=== PATIENT | female | born 1975 | race Caucasian/White ===

== ENCOUNTER 2019-03-27 21:00 | Observation (INO) ==
[2019-03-27] MEDS ORDERED: ASPIRIN PO ONE (21:07)
--- NOTE | 2019-03-27 21:59 | EKG Report ---
Test Performed on : 03/27/2019 9:15:37 PM Test Reason : cp Blood Pressure : / mmHG Vent. Rate : 085 BPM Atrial Rate : 085 BPM P-R Int : 140 ms QRS Dur : 082 ms QT Int : 352 ms P-R-T Axes : 043 014 098 degrees QTc Int : 418 ms Normal sinus rhythm. Possible Left atrial enlargement T wave abnormality, consider anterolateral ischemia Abnormal ECG When compared with ECG of 11-NOV-2018 12:44, T wave inversion now evident in Anterolateral leads Unconfirmed Result
[2019-03-27 22:06] LABS: BASO# 0.08 X1000 (0.0-0.2); BASO% 1.1 % (0.0-0.8); EOS# 0.46 X1000 (0.0-0.7); EOS% 6.5 % (0.0-10.0); HEMATOCRIT 41.5 % (37.0-47.0); LYMPH# 3.27 X1000 (1.2-3.4); LYMPH% 46.1 % (20.5-51.1); MCHC 33.7 g/dL (33-37); MCV 86.1 FL (81-99); MONO# 0.71 X1000 (0.11-0.59); MPV 9.9 FL (7.4-10.4); NEUT# 2.57 X1000 (1.4-6.5); NEUT% 36.3 % (42.2-75.2); PLT 226 X1000 (130-400); RBC 4.82 XMIL (4.2-5.4); WBC 7.09 X1000 (4.8-10.8)
--- NOTE | 2019-03-27 22:23 | PROVIDER DOCUMENTATION ---
This chart was entered by Alecia Dejesus Scribe, acting as scribe for Kamilla Vallejo MD. HPI-Chest Pain - General Chief Complaint: Chest Pain Stated Complaint: CHEST PAIN/OPEN HEART MEHDI 01/23 Time Seen by Provider: 03/27/19 21:28 Source: patient Allergies/Adverse Reactions: Patient Allergies Allergy/AdvReac Type Severity Reaction Status Date / Time No Known Allergies Allergy Verified 11/11/18 12:54 Home Medications: Home Medication List Medication Instructions Recorded Confirmed Last Taken Type Insulin Aspart [Novolog] 100 unit SQ DIRECTED 12/07/13 11/08/15 11/08/15 16:25 History Levothyroxine [Synthroid] 150 microgm PO DAILY 12/07/13 11/08/15 11/08/15 05:30 History Escitalopram Oxalate [Lexapro] 10 mg PO DAILY 11/08/15 11/08/15 11/08/15 05:30 History - History of Present Illness-CP Nature of Presenting Problem: 43 yof c/o chest "cramping" since 1800 that is int and lasts few seconds. pt sts when pain occurs, hurts to take deep breath. pt sts went for walk and was able to only walk 1/4 a mile. pt was found by to be diaphoretic, heart racing and dizzy. checked heart rate after walk and it was 116 and checked again and went down to 80s. o2 was 98-99%. pt has hx of lad replacement on 01-23-19. pt has been able to exercise. walk 2-4 miles few times a week with no problems. 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 denies nvd, fever and swelling. Location: reports: other (left sided) Chest Pain Radiation: reports: no radiation Quality of Pain: reports: cramping Onset/Duration: 4-6 hours ago Timing: intermittent Context/Activities at Onset: reports: light activity Review of Systems - Adult - REVIEW OF SYSTEMS - ADULT Constitutional: reports: no symptoms reported. denies: chills, fever, fatique, night sweats Eyes: reports: no symptoms reported Ears, Nose, Mouth & Throat: reports: no symptoms reported Cardiovascular: reports: see HPI, chest pain, irregular heart rate (tachy). denies: heart murmur, palpitations, poor circulation, PND, syncope Respiratory: reports: see HPI, dyspnea on exertion. denies: cough, hemoptysis, shortness of breath Gastrointestinal: reports: see HPI, nausea (after walking that has resolved). denies: abdominal pain, diarrhea, vomiting Genitourinary: reports: no symptoms reported Musculoskeletal: reports: no symptoms reported Integumentary: reports: no symptoms reported Neurological: reports: see HPI, dizziness/vertigo (has resolved). denies: loss of balance, numbness, syncope Psychiatric: reports: no symptoms reported Endocrine: reports: see HPI, excessive sweating (after walk, has resolved). denies: goiter, increased thirst, polyuria Hematologic/Lymphatic: reports: no symptoms reported Allergic/Immunologic: reports: no symptoms reported All Other Systems: Reviewed and Negative Past History - Adult - PAST MEDICAL HISTORY-ADULT Review of Records: reports: Old Records Reviewed, Nursing Assessment Review, Medications Reviewed, Social history reviewed & non-contributory. Major Childhood Illnesses: reports: denies history Cardiovascular: reports: MA Respiratory: reports: denies history Gastrointestinal: reports: denies history Obstetrical/Gynecological: reports: denies history Genitourinary: reports: denies history Musculoskeletal: reports: denies history Neurological: reports: denies history Endocrine/Immune: reports: Diabetes Other Conditions: reports: denies history - PRIOR SURGERIES/PROCEDURES Surgical/Procedure History: reports: other (open heart sx to replace lad) - IMMUNIZATION STATUS Childhood Immunizations: See Nurse Assessment Flu Vaccine: See Nurse Assessment - FAMILY HISTORY Family History: reviewed, not pertinent - SOCIAL HISTORY Smoking: non-smoker Substance Use: none/never Physical Exam-General - PHYSICAL EXAM-ADULT Initial Vital Signs Reviewed: Yes - CONSTITUTIONAL General Appearance: appears well, alert, no apparent distress - EYES Eyes: PERRL/EOMI, pink conjunctivae - HEAD, EARS, NOSE, MOUTH & THROAT HENMT: normocephalic/atraumatic, moist mucous membranes, normal ENT inspection - NECK Neck: non-tender, full range of motion, supple, normal inspection - RESPIRATORY Respiratory: chest non-tender, lungs clear, normal breath sounds - CARDIOVASCULAR Cardiovascular: normal peripheral pulses, regular rate, rhythm - GASTROINTESTINAL (ABDOMEN) Abdominal Exam: normal bowel sounds, non tender, soft - LYMPHATIC Lymphatic: no adenopathy - MUSCULOSKELETAL Back Exam: normal inspection, no CVA tenderness, no vertebral tenderness Extremity: normal range of motion, non-tender, normal inspection Peripheral Pulses: radial (R): 2+, radial (L): 2+ - SKIN Integumentary: normal color, normal turgor, warm/dry - NEUROLOGIC Neurologic: grossly normal, no motor/sensory deficits - PSYCHIATRIC Psych/Mental Status: normal mood/affect, normal thought content, normal thought process, oriented x 3 Progress - PLAN OF CARE/RESULTS Progress/Plan/Lab Results: Vital Signs - 8 hr 03/27/19 21:32 Temperature 97.6 F Pulse Rate 86 Respiratory Rate 18 O2 Sat by Pulse Oximetry 100 Laboratory Results - last 24 hr 03/27/19 03/27/19 03/27/19 21:49 21:49 21:49 WBC 7.09 RBC 4.82 Hgb 14.0 Hct 41.5 MCV 86.1 MCH 29.0 MCHC 33.7 RDW Std Deviation 13.0 Plt Count 226 MPV 9.9 Immature Gran % (Auto) 0.0 Neut % (Auto) 36.3 L Lymph % (Auto) 46.1 [place] % (Auto) 10.0 H Eos % (Auto) 6.5 Baso % (Auto) 1.1 H Immature Gran # (Auto) 0.00 Neut # (Auto) 2.57 Lymph # (Auto) 3.27 [place] # (Auto) 0.71 H Eos # (Auto) 0.46 Baso # (Auto) 0.08 D-Dimer, Quantitative Sodium Potassium Chloride Carbon Dioxide Anion Gap BUN Creatinine Estimated GFR/1.73 m2 BUN/Creatinine Ratio Glucose Calculated Osmolality Calcium Total Bilirubin AST ALT Alkaline Phosphatase Creatine Kinase 87 Troponin T 0.033 Total Protein Albumin Globulin Albumin/Globulin Ratio 03/27/19 03/27/19 21:49 21:49 WBC RBC Hgb Hct MCV MCH MCHC RDW Std Deviation Plt Count MPV Immature Gran % (Auto) Neut % (Auto) Lymph % (Auto) [place] % (Auto) Eos % (Auto) Baso % (Auto) Immature Gran # (Auto) Neut # (Auto) Lymph # (Auto) [place] # (Auto) Eos # (Auto) Baso # (Auto) D-Dimer, Quantitative 0.56 H Sodium 142 Potassium 4.4 Chloride 107 Carbon Dioxide 20 L Anion Gap 15 BUN 16 Creatinine 0.6 Estimated GFR/1.73 m2 > 60 BUN/Creatinine Ratio 27 Glucose 194 H Calculated Osmolality 290 Calcium 9.5 Total Bilirubin 0.36 AST 34 H ALT 26 Alkaline Phosphatase 89 Creatine Kinase Troponin T Total Protein 6.7 Albumin 4.3 Globulin 2.4 Albumin/Globulin Ratio 1.8 Orders Category Date Time Status CHEST-1 VIEW [RAD] Stat Exams 03/27/19 21:56 Taken CBC WITH ELECTRONIC DIFF [HEME] Stat Lab 03/27/19 21:49 Completed CK PROFILE [SP CHEM] Stat Lab 03/27/19 21:49 Completed COMPREHENSIVE METABOLIC PANEL [CHEM] Stat Lab 03/27/19 21:49 Completed D-DIMER [COAG] Stat Lab 03/27/19 21:49 Completed TROPONIN T Stat Lab 03/27/19 21:49 Completed Aspirin Med 03/27/19 21:07 Discontinued 325 mg PO NOW ONE EKG [EKG] Stat Ther 03/27/19 21:07 Draft Result Diagrams: 03/27/19 21:49 03/27/19 21:49 - EKG 1 Time of EKG reading by physician:: 21:20 EKG Read and Signed by:: Kamilla Vallejo EKG Interpretation (*Must complete 3 of following elements*): Abnormal Rate: 85 (possible left atrial enlargement ) Rhythm: NSR [place]: normal QRS: normal SC Interval: normal ST Wave: non-specific ST changes (t wave abnormality, consider anterolateral ischemia) - CONSULTS/PCP/HOSPITALIST Notification #1 *Consult/PCP/Hospitalist*: D/W DR LEE, HOSPITALIST Time Discussed: 23:35 Consult Disposition: Admit Departure - Departure Date of Disposition Decision: 03/27/19 Time of Disposition Decision: 23:38 DIAGNOSIS: Chest pain Disposition: ADMITTED INPATIENT 09 Certified Medical Emergency: Emergent Condition: Stable Referrals and Follow-Ups: Higinio Velásquez CRNP [Primary Care Provider] - - Critical Care Note This patient required my direct & personal management of CC.: No Attestation - Physician/ CRICKET Attestation Patient care was provided by Advanced Practice Provider:: No The physician spent face to face time with patient:: Yes Advanced Practice Provider documentation review:: Supervising physician onsite and consulted in the evaluation and care of this patient. The physician did have a face to face encounter with the patient. This chart was documented by the indicated scribe, (Alecia Dejesus, Scribe) and accurately reflects the services I performed and decisions made by me, Kamilla Vallejo MD, as attested by the provider's signature.
[2019-03-27 23:04] LABS: AGAP 15; ALB/GLOB RATIO 1.8; ALBUMIN 4.3 g/dL (3.5-5.0); ALKALINE PHOSPHATASE 89 U/L (32-104); BUN 16 mg/dL (8-22); CALCIUM 9.5 mg/dL (8.8-10.2); CHLORIDE 107 mmol/L (98-107); COSMO 290; CREATININE 0.6 mg/dL (0.5-0.9); ESTIMATED GFR > 60; GLUCOSE 194 mg/dL (70-104); GOT 34 U/L (10-30); GPT 26 U/L (10-36); POTASSIUM 4.4 mmol/L (3.5-5.1); SODIUM 142 mmol/L (136-145); TCO2 20 mmol/L (25-35); TOTAL BILIRUBIN 0.36 mg/dL (0.20-1.00); TOTAL PROTEIN 6.7 g/dL (6.3-8.3)
[2019-03-28] MEDS ORDERED: NITROGLYCERIN SL PRN (02:25)
[2019-03-28] MEDS ORDERED: TYLENOL PO PRN (02:25)
[2019-03-28] MEDS ORDERED: ZOFRAN IV PRN (02:25)
--- NOTE | 2019-03-28 06:16 | HISTORY AND PHYSICAL ---
PRIMARY CARE PHYSICIAN: Dr. Higinio Velásquez CHIEF COMPLAINT: Chest pain. HISTORY OF PRESENTING ILLNESS: A 42-year-old female with a history of coronary artery disease status post coronary bypass in January of 2019, diabetes mellitus type 1, and hypothyroidism who had presented to emergency department with a 1-day history of having chest pain. She described it as cramping like sensation and worse with exertion. She was also having shortness of breath intermittently. The patient was evaluated in the emergency department. Due to her presenting symptoms, it was thought that we will place her for observation for further evaluation and management. At the time of my examination, patient denied any headache, nausea, vomiting, diarrhea, fever, chills, hemoptysis, melena, or weight changes, but complained of chest pain and shortness of breath. PAST MEDICAL HISTORY: Includes diabetes mellitus type 1 on insulin pump and hypothyroidism. PAST SURGICAL HISTORY: Coronary bypass, cataract surgery, and skin graft in lower legs. ALLERGIES: No known drug allergies. CURRENT MEDICATIONS: 1. Lexapro 10 mg p.o. daily. 2. NovoLog as directed. 3. Levothyroxine 150 mcg p.o. daily. SOCIAL HISTORY: No history of smoking, alcohol or illicit drug use. FAMILY HISTORY: No history of coronary artery disease. REVIEW OF SYSTEMS: Fourteen point review of system is as in HPI. Other systems negative. PHYSICAL EXAMINATION: GENERAL: Cooperative, friendly female. She is resting comfortably now. VITAL SIGNS: Temperature 97.6 degrees, pulse 86, respirations 18, and blood pressure 120/80. HEENT: Atraumatic, normocephalic. Extraocular movements intact. PERRLA. NECK: No masses. CHEST: Clear to auscultation. CARDIOVASCULAR: Regular rate and rhythm. ABDOMEN: Soft. Positive bowel sounds. EXTREMITIES: No edema. NEUROLOGIC: She is awake, alert, and oriented x3. : No bladder distention. SKIN: Warm. LABORATORIES AND STUDIES: WBCs 7.19, hemoglobin 14.1, hematocrit 41.5, and platelets 226,000. Sodium 142, potassium 4.4, chloride 107, CO2 is 20, BUN is 16, creatinine 0.6 and glucose is 194. ASSESSMENT: A 43-year-old female with a history of diabetes mellitus type 1, hypothyroidism, coronary artery disease, status post recent coronary bypass in January of 2019 who had presented to the emergency department with a 1-day history of having chest pain. The patient was evaluated in the emergency department. She will be admitted for observation for further evaluation and management. 1. Chest pain. 2. Coronary artery disease, status post recent coronary bypass in January of 2019. 3. Diabetes mellitus type 1 on insulin pump. 4. Hypothyroidism. PLAN: 1. We will admit patient to medical floor with telemetry. 2. Continue with cardiac workup. Check EKG and cardiac enzymes. We will have the patient continue on aspirin. We will use sublingual nitroglycerin p.r.n. chest pain. 3. We will consult Cardiology. 4. Continue patient on insulin pump. 5. We will monitor blood glucose closely. 6. Restart other home medications. 7. Put patient on DVT prophylaxis and SCD's. 8. Continue to follow and reassess. Make further recommendations based on patient's clinical course. cc: Rodríguez Bustillo MD MTDD
--- NOTE | 2019-03-28 07:08 | Diag Imaging Result Doc PS360 ---
EXAM: CHEST-1 VIEW 03/27/2019 HISTORY: CP TECHNIQUE: AP portable at 2217 COMMENT: The lungs are clear. There are sternotomy wires. The heart and pulmonary vascularity are within normal limits. Compared to 12/09/2013 the postsurgical changes were not present previously but otherwise there has been no significant change. IMPRESSION: No evidence of acute disease. Electronically signed by Jose Owens 03/28/2019 7:06 AM
[2019-03-28] MEDS: PRILOSEC PO SCH (08:41)
[2019-03-28] MEDS ORDERED: NS 1,000 ML IV SCH (08:45)
[2019-03-28] MEDS ORDERED: ASPIRIN PO SCH (09:00)
--- NOTE | 2019-03-28 10:57 | EKG Report ---
Test Performed on : 03/28/2019 10:49:02 AM Test Reason : chest pain Blood Pressure : / mmHG Vent. Rate : 097 BPM Atrial Rate : 097 BPM P-R Int : 150 ms QRS Dur : 076 ms QT Int : 376 ms P-R-T Axes : 042 008 193 degrees QTc Int : 477 ms Normal sinus rhythm. Possible Left atrial enlargement T wave abnormality, consider inferior ischemia T wave abnormality, consider anterolateral ischemia Prolonged QT Abnormal ECG When compared with ECG of 27-MAR-2019 21:15, (Unconfirmed) T wave inversion now evident in Inferior leads T wave inversion more evident in Lateral leads QT has lengthened Confirmed by Jeannette Cerda MD ([id number]) on 04/02/2019 9:28:11 PM
[2019-03-28] MEDS ORDERED: SYNTHROID PO SCH (15:00)
[2019-03-28] MEDS ORDERED: LIPITOR PO SCH (15:00)
--- NOTE | 2019-03-28 15:38 | Diag Imaging Result Document ---
PROCEDURE NAME: MYOCARDIAL PERFU SCAN, REST - 03/28/2019 INDICATION: This is a 43-year-old female who is a coronary bypass patient, single mammary graft to LAD, presenting with chest pain. DESCRIPTION OF PROCEDURE: The patient received a rest injection of technetium 99 sestamibi 30.7 mCi. Multiple tomographic views of the cardiac structures were obtained at rest. SUMMARY OF SCINTIGRAPHIC FINDINGS: Resting views of the left ventricle showed a moderately extensive and moderately severe mid anterior to apical anterior wall defect. The polar plots show the same finding. There is a moderately extensive and moderately severe to severe mid anterior to apical anterior wall defect. Gated SPECT shows relatively preserved ejection fraction at 78% with apical anterior hypokinesis. The Myometrix ejection fraction is 71%, again with apical anterior hypokinesis. The lung/heart ratio is 0.42. CONCLUSIONS: In summary, this resting gated myocardial perfusion study is abnormal, suggesting the presence of resting ischemia or a scar involving the mid apical to apical anterior portion of the left ventricle. Clinical correlation is strongly recommended. cc: MD Anh Roberson PA
--- NOTE | 2019-03-28 16:21 | PROGRESS NOTE ---
DATE: 03/28/2019 INTERVAL HISTORY: Her resting nuclear medicine myocardial images just popped up and shows moderately severe and moderately extensive mid anterior wall and apical anterior wall defect. SUBJECTIVE: The patient denies any more chest pain episodes since 1 a.m. or any shortness of breath; however, she has been resting in the bed. I have not had a chance to discuss with her about nuclear medicine stress test. However, cardiology has just been to her room and discussing the results. PHYSICAL EXAMINATION: Vital Signs: Currently temperature 98 degrees, pulse 105, respiratory rate 20, blood pressure 115/67. She is saturating 100% room air. General: On physical examination, she does not appear in any acute distress. No chest wall tenderness. Lungs: Air entry bilaterally equal. No wheeze, rhonchi, or crackles. Cardiac: S1 and S2, normal. No murmur, rub, or gallop. Abdomen: Soft, nontender. She has insulin pump. Extremities: No lower extremity edema. Neurologic: She is alert and oriented x3. LABS: Suggestive of normal CBC. She does have normal kidney function, hyperglycemia. Her troponins were 0.03, 0.04 and less than 0.01. Microbiology, no data. IMAGING: Her chest x-ray on admission did not have any evidence of acute disease. Myocardial perfusion scan nuclear medicine had presence of resting ischemia or scar involving the medial plical topical anterior portion of the left ventricle. ASSESSMENT AND PLAN: 1. Anginal chest pain with history of coronary artery disease, status post coronary artery bypass grafting with internal mammary artery in January 2019, now with abnormal nuclear medicine resting images. Continue her on her home aspirin, high-dose statin, metoprolol, and I appreciate Cardiology's recommendation about need for coronary angiography versus transfer to [facility]. 2. Others, continue ferrous sulfate for anemia, which is her home medication; levothyroxine for hypothyroidism; omeprazole for chronic gastroesophageal reflux disease. She has insulin pump for h/o IDDM type 1. 3. Disposition: Pending Cardiology recommendations. Plan of care discussed with her. All questions have been answered. cc: MD WESTLEY Mancilla
--- NOTE | 2019-03-28 17:06 | CONSULTATION ---
DATE OF CONSULTATION: 03/27/2019 IMPRESSION: 1. Acute coronary syndrome with ECG and resting myocardial perfusion imaging suggesting ischemia in apical anterior wall and apex. 2. Atherosclerotic coronary disease. Patient is status post coronary bypass with left internal mammary artery graft to left anterior descending coronary in January 2019 just a few months ago. 3. Insulin-dependent diabetes mellitus. 4. Hypertension. 5. Hyperlipidemia. RECOMMENDATIONS: Favor pursuit of left heart catheterization and selective coronary angiography and possible coronary intervention. The rationale for this approach along with potential hazards were reviewed the patient. She expressed preference to transfer to [facility] to have this performed and arrangements have been made for to be transferred to [facility]. HISTORY: This 43-year-old, white female with past history of recent coronary bypass grafting x1 vessel with off pump left internal mammary artery graft to left anterior descending coronary in January of this year for severe proximal LAD stenosis, insulin-dependent diabetes mellitus, hypertension, hyperlipidemia was admitted yesterday with recurrent chest pain. She relates that she went for a walk as she usually does. She developed substernal chest pressure/tightness with some shortness of breath. Discomfort was intermittent but seemed to improve after she stopped walking. She had some persistent intermittent chest discomfort of this nature sort of stuttering and she called her who came pick her up and brought to he emergency room. Her chest symptoms have resolved. She relates discomfort did not really sustained itself for that long. Symptoms prior to her coronary bypass consisted of palpitations. She normally can walk this walk quite readily without getting short of breath or having chest discomfort. PAST MEDICAL HISTORY: 1. Atherosclerotic coronary disease with history of off pump coronary bypass grafting with left internal mammary artery graft to left anterior descending coronary for management of severe proximal left anterior descending stenosis back in January of this year. 2. Type 1 diabetes mellitus. 3. Hypertension. 4. Hyperlipidemia. 5. Hypothyroidism. 6. Anemia. PAST SURGICAL HISTORY: 1. Tubal ligation. 2. Unspecified shoulder surgery. 3. Cataract extraction. 4. Unspecified skin graft. ALLERGIES: No known drug allergies. MEDICATIONS PRIOR TO ADMISSION: As listed. SOCIAL HISTORY: She is . She works as an elementary reading tutor in [employer] She does not smoke or use alcohol. FAMILY HISTORY: Positive for diabetes and atherosclerotic coronary disease. REVIEW OF SYSTEMS: Pulmonary: Noncontributory beyond history of present illness. Gastrointestinal: Noncontributory beyond history of present illness. Constitutional: Noncontributory beyond history of present illness. Remainder review of systems negative/noncontributory beyond history present illness with 14 total systems reviewed. PHYSICAL EXAMINATION: General: This is a pleasant adult white female in no distress. Vital signs: Blood pressure 105/59, heart rate 81 and regular, oxygen saturation 98%. HEENT: Extraocular muscles appear intact. Mucous membranes moist. Neck: Supple without jugular venous distention. There are no carotid bruits. Chest: Clear to auscultation bilaterally. Cardiac Exam: Reveals a regular rate and rhythm without appreciable murmur or gallop. Abdomen: Soft. Bowel sounds are normal. Extremities: Without edema. Neurologic: Reveals her to be alert and fully oriented. Speech is fluent. She moves all 4 extremities equally well. Skin: Warm dry. Psychiatric: Reveals mood to be appropriate. DIAGNOSTIC: 12 lead EKG demonstrates sinus rhythm, left atrial abnormality, and diffuse T-wave inversion across the precordial leads and also in the inferior leads. Consider anterior and inferior ischemia. LABORATORY DATA: Includes sodium 142, potassium 4.4, chloride 107, carbon dioxide 20, BUN 16, creatinine 0.6 glucose 194. White blood cell count 7.1, hematocrit 41.5, hemoglobin 14.0, platelet count 226,000. Troponin T of 0.043 followup troponin T 0.033. Initial CPK 87 followup CPK 67. Resting sestamibi study reports defect in the apical anterior wall and apex. Ischemia in this region is suggested. cc: Rhys Campbell MD
--- NOTE | 2019-03-28 19:05 | ECHO REPORT ---
ORDER DATE: 03/28/2019 INDICATION: Status post mammary graft to LAD. Chest pain, unstable angina. M-MODE MEASUREMENTS: Left ventricle end diastole: 3.1. Left ventricle end systole: 2.2. Posterior wall: 1.2. Interventricular septum: 1.3. Left atrium: 3.0. Aortic diameter: 2.6. SUMMARY OF 2-DIMENSIONAL IMAGIN. Global left ventricular systolic function appears to be preserved. Ejection fraction is 55%. There is akinesis to dyskinesis of the mid to apical anterior portion of the left ventricle and the most apical portion of the septum. All the other menezes show normal contractility. Optison was added to optimize visualization of the endocardium. With the addition of the contrast, visualization of the abnormal wall motion was much clearer. 2. The aortic valve appears to be unremarkable. 3. There is no pericardial effusion. 4. The mitral valve appears to be grossly normal. 5. The inferior vena cava is not dilated. SUMMARY: This study shows akinesis to dyskinesis of the apical septal portion of the left ventricle, consistent with an acute coronary syndrome involving the mid to distal LAD. Clinical correlation is strongly recommended. cc: MD Anh Roberson PA
[2019-03-28] MEDS ORDERED: FERROUS SULFATE PO SCH (21:00)
[2019-03-28] MEDS ORDERED: LOPRESSOR PO SCH (21:00)
[2019-03-29] MEDS: PRILOSEC PO SCH (06:27)
[2019-03-29 08:05] LABS: HEMATOCRIT 37.4 % (37.0-47.0); HEMOGLOBIN 12.8 g/dL (12.0-16.0); MCH 29.2 PG (27-31); MCHC 34.2 g/dL (33-37); MCV 85.2 FL (81-99); MPV 9.9 FL (7.4-10.4); RBC 4.39 XMIL (4.2-5.4); RDW 12.9 % (11.5-14.5); WBC 4.38 X1000 (4.8-10.8)
[2019-03-29 08:12] LABS: INR 1.12; PROTIME 14.6 Seconds (11.0-16.0)
[2019-03-29 08:24] LABS: AGAP 12; BUN 13 mg/dL (8-22); CALCIUM 8.5 mg/dL (8.8-10.2); CHLORIDE 110 mmol/L (98-107); COSMO 285; CREATININE 0.6 mg/dL (0.5-0.9); ESTIMATED GFR > 60; GLUCOSE 136 mg/dL (70-104); MAGNESIUM 1.8 mg/dL (1.5-2.7); POTASSIUM 3.9 mmol/L (3.5-5.1); SODIUM 142 mmol/L (136-145); TCO2 20 mmol/L (25-35)
[2019-03-29 08:59] VITALS: BP 144/78
--- NOTE | 2019-04-01 21:03 | DISCHARGE SUMMARY ---
ADMISSION DATE: 03/28/2019 DISCHARGE DATE: 03/29/2019 CONSULTATIONS: Cardiology, Dr. Campbell. PERTINENT STUDIES: Cardiac stress test showing resting ischemia or scar along the mid apical to apical anterior portion of the left ventricle. Echocardiogram showing an EF of 55, akinesis of the mid apical anterior portion of left ventricle and most apical portion of the septum. Chest x- ray with no acute process. D-dimer 0.5. Troponin negative x3. CRP 5.4. Chemistries essentially unremarkable, aside from bicarbonate 20. DISCHARGE DIAGNOSES: 1. Chest pain. 2. Coronary artery disease, status post bypass. 3. Anemia. 4. Hypothyroidism. 5. Gastroesophageal reflux disease. 6. Diabetes mellitus type 1. HOSPITAL COURSE: Patient presented initially with chest pain. Initial workup was largely unremarkable with negative troponins. Cardiology elected to perform a stress test, which showed scar versus resting ischemia as above. The patient during this period had some persistent intermittent chest discomfort, so they decided given her stress test findings, to transfer her to [facility]. Her chronic comorbidities including diabetes, hypertension, hyperlipidemia, etc, were stable during the hospitalization. DISCHARGE DIET: NPO until seen by Cardiology at [facility]. DISCHARGE MEDICATIONS: Aspirin, iron, atorvastatin, Lopressor, NovoLog, Synthroid. FOLLOWUP AND PLAN: Patient transferring to [facility] for cardiac catheterization and possible stent. TIME: Greater than 30 minutes spent arranging discharge and counseling patient.
== END 2019-03-29 08:45 | disposition short-term general hospital (02) ==
LOC: ED 21:00 → 3N 21:00 → SUATTDRO 03-28 01:01
PROVIDERS: ATTEND Internal Medicine

== ENCOUNTER 2019-07-10 15:52 | Observation (INO) ==
[2019-07-10] MEDS ORDERED: NORCO-7.5 PO PRN (17:47)
[2019-07-10] MEDS ORDERED: TYLENOL PO PRN (17:48)
[2019-07-10 18:35] LABS: HEMATOCRIT 40.8 % (37.0-47.0); HEMOGLOBIN 13.6 g/dL (12.0-16.0); MCH 28.6 PG (27-31); MCHC 33.3 g/dL (33-37); MCV 85.7 FL (81-99); MPV 9.2 FL (7.4-10.4); RBC 4.76 XMIL (4.2-5.4); RDW 13.5 % (11.5-14.5); WBC 6.83 X1000 (4.8-10.8)
[2019-07-10 18:49] LABS: AGAP 11; BUN 14 mg/dL (8-22); CALCIUM 9.3 mg/dL (8.8-10.2); CHLORIDE 107 mmol/L (98-107); COSMO 283; CREATININE 0.7 mg/dL (0.5-0.9); ESTIMATED GFR > 60; GLUCOSE 123 mg/dL (70-104); POTASSIUM 3.8 mmol/L (3.5-5.1); SODIUM 141 mmol/L (136-145); TCO2 24 mmol/L (25-35)
[2019-07-10] MEDS: LEVAQUIN 500 MG/D5W 500 MG/100 ML IVPB IV SCH (19:33)
[2019-07-10] MEDS: NS 1,000 ML IV SCH (19:33)
--- NOTE | 2019-07-10 19:35 | HISTORY AND PHYSICAL ---
PRIMARY CARE PROVIDER: SAMSON Sevilla PRIMARY DOUGH RAISER: Juarez Vilchis MD CHIEF COMPLAINT: Abdominal pain, nausea, vomiting, and diarrhea. HISTORY OF PRESENT ILLNESS: Ms. Caroline Hammer is a 44-year-old female with a medical history of single-vessel CAD who required coronary artery bypass grafting by Dr. Cassidy in January 2019, then March of 2019, required 1 stent to the LAD for which she is on prasugrel for. Her other medical history is about sometime in 2004 she had a spider bite that required antibiotic therapy that caused her to have C difficile colitis at that time. She states that she feels like the bowel movements she is having now is very similar to the bowel movements she had then. It is very gelatinous, very foul smelling, but she has had no recent antibiotics. She states for about a month. She has had soft bowel movements. The last 2 weeks they became more loose, and then Wednesday night, she developed abdominal pain as generalized, but almost felt like it was tracking through the intestinal system along with diarrhea. She went to see SAMSON Sevilla, her primary, who gave her IV fluids in the clinic and sent her home. She felt good up until today when she started feeling bad again, so she had a good weekend. She felt bad again, started having vomiting along with the diarrhea, so we are going to admit her, do evaluation. She was scheduled for an abdominal pelvic CT for tomorrow, but she felt like she could not wait. PAST MEDICAL HISTORY: 1. Angina. She is on Ranexa for it. 2. CAD without DC. Has had an LAD stent and coronary artery bypass grafting x1. 3. Diabetes mellitus type 1 on insulin pump. 4. Hypothyroidism. 5. History of spider bite with C difficile colitis after antibiotic therapy in 2004. SURGICAL HISTORY: 1. Coronary artery bypass grafting x1 on 01/23/2019. 2. Cardiac stent to the LAD March 2019. 3. Cataract surgery. 4. Skin graft to the lower leg due to the spider bite in 2004. SOCIAL HISTORY: Denies tobacco, alcohol or illicit drug use. She is with 2 kids. 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 FAMILY HISTORY: Mother has a history of lupus. Father, no medical history. ALLERGIES: No known drug allergies. HOME MEDICATIONS: The home medications in the computer have not been reconciled yet but she is on aspirin, atorvastatin, metoprolol, Ranexa, prasugrel, insulin pump, and she is also on Synthroid. REVIEW OF SYSTEMS: Fourteen-point review of systems are complete and all are negative except those mentioned above in HPI. She denies any fevers. PHYSICAL EXAMINATION: VITAL SIGNS: Temperature 97.6 degrees, heart rate 70, respiratory rate 20, blood pressure 127/59, O2 saturation 98% on room air. GENERAL: Ms. Caroline Hammer is a 44-year-old female. She is in no acute distress. She is able to answer questions appropriately. HEENT: Atraumatic, normocephalic. Pupils equal, round, reactive to light. Extraocular movements intact. Mucous membranes are dry. NECK: Trachea midline. CARDIOVASCULAR: S1, S2. Regular rate and rhythm. No rubs, gallops, murmurs. No lower extremity edema. +2 dorsalis and radial pulses. Negative JVD or carotid bruits. PULMONARY: Clear to auscultation bilateral breath sounds. No accessory muscle use or work of breathing noted. GASTROINTESTINAL: Soft, generalized tenderness in all 4 quadrants. Positive bowel sounds x4. EXTREMITIES: Moves all extremities equally. Full range of motion. NEUROLOGIC: A and O x3. Follows commands. Sensory is intact. SKIN: Warm, dry, intact. LABORATORY DATA: None yet. IMAGING: None yet. ASSESSMENT AND PLAN: 1. It could be diverticulitis, could be colitis, currently with abdominal pain, diarrhea, nausea, vomiting. Antiemetics are ordered. Stool studies ordered. Abdominal pelvic CT ordered. She will be on Flagyl and Levaquin. 2. History of coronary artery disease with a stent to the left anterior descending and coronary artery bypass grafting. We will need to get her home medications reconciled so we can get those resumed. She is on aspirin, statin, beta carmen. 3. Angina, which she states is really very rare now. She is on Ranexa for that. That needs to be resumed once it is verified. 4. Hypothyroidism. We will need to continue her Synthroid. 5. Diabetes mellitus type 1. She is currently on her own insulin pump. 6. Deep venous thrombosis prophylaxis. Sequential compression devices. Dictated by SAMSON Gomez for Sukhjinder Diaz MD cc: SAMSON Gomez MD
--- NOTE | 2019-07-10 20:00 | HISTORY AND PHYSICAL ---
CHIEF COMPLAINT: Abdominal pain. HISTORY OF PRESENT ILLNESS: Patient is a 42-year-old female who presented to the hospital with abdominal pain, nausea, and diarrhea. Denies any blood in her stool. Denies any blood in her emesis. She has not had any fever. She has had decreased oral intake secondary to her nausea. PAST MEDICAL HISTORY: 1. Type 1 diabetes, on insulin pump. 2. Hypothyroidism. 3. Known coronary artery disease, status post bypass grafting in January 2019. ALLERGIES: No known drug allergies. MEDICATIONS: 1. Lexapro. 2. NovoLog. 3. Levothyroxine. SOCIAL HISTORY: Patient is . Does not smoke or drink. Her primary care is SAMSON Sevilla. FAMILY HISTORY: Noncontributory to her current illness. REVIEW OF SYSTEMS: The patient denies any fevers, chills. States she has abdominal pain, nausea. She has had vomiting, but no blood in her stool. No blood in her emesis. Denies headaches, blurred vision. States that she has had decreased oral intake secondary to her symptoms. Denies any focalized numbness, tingling, weakness in her extremities. Notes that her blood sugars have been good at home. Denies any problems with blood pressures. PHYSICAL EXAMINATION: VITAL SIGNS: Temperature 97.6 degrees, pulse 70, respiratory rate 18, BP 127/59. GENERAL: Patient is awake, alert, currently in no respiratory distress, although she is somewhat ill-appearing. HEENT: Normocephalic. NECK: Supple. CARDIOVASCULAR: Regular rate. No murmurs. CHEST: Clear, nonlabored. No wheezing. ABDOMEN: Soft, nondistended. No hepatosplenomegaly. Diffusely tender, more so in the left lower quadrant. EXTREMITIES: Moves all extremities. No edema. NEUROLOGIC: No changes. ASSESSMENT: 1. Diverticulitis. 2. Diabetes type 1. 3. Hypothyroidism. 4. Nausea and vomiting. 5. Abdominal pain. 6. Known coronary artery disease. PLAN: We are going to admit patient to the hospital. CT is currently pending. We are going to place her on antibiotics, intravenous fluids, pain control. We will check labs. Further orders as needed. cc: Sukhjinder Diaz MD
[2019-07-10] MEDS: HUMALOG (PARKWAY) SUBQ SCH (21:36)
[2019-07-10] MEDS: FLAGYL 500 MG/NS 500 MG/100 ML IVPB IV SCH (22:07)
[2019-07-10] MEDS: ZOFRAN IV PRN (22:11)
[2019-07-10 22:28] LABS: OCCULT BLOOD 1 NEGATIVE (NEGATIVE)
[2019-07-10 22:43] LABS: C DIFF TOXIN PL NEGATIVE (NEGATIVE)
[2019-07-11] MEDS: FLAGYL 500 MG/NS 500 MG/100 ML IVPB IV SCH ×4 (03:10→22:04)
[2019-07-11] MEDS: HUMALOG (PARKWAY) SUBQ SCH ×4 (06:01→20:36)
[2019-07-11 06:24] LABS: HEMOGLOBIN 12.2 g/dL (12.0-16.0); MCH 28.5 PG (27-31); MCV 86.4 FL (81-99); MPV 9.4 FL (7.4-10.4); RBC 4.28 XMIL (4.2-5.4); RDW 13.5 % (11.5-14.5); WBC 6.79 X1000 (4.8-10.8)
[2019-07-11 06:33] LABS: AGAP 11; ALBUMIN 3.7 g/dL (3.5-5.0); ALKALINE PHOSPHATASE 63 U/L (32-104); BUN 13 mg/dL (8-22); CALCIUM 8.6 mg/dL (8.8-10.2); CHLORIDE 107 mmol/L (98-107); COSMO 280; CREATININE 0.6 mg/dL (0.5-0.9); ESTIMATED GFR > 60; GLUCOSE 101 mg/dL (70-104); GOT 13 U/L (10-30); GPT 12 U/L (10-36); MAGNESIUM 1.6 mg/dL (1.5-2.7); POTASSIUM 3.5 mmol/L (3.5-5.1); SODIUM 140 mmol/L (136-145); TCO2 22 mmol/L (25-35); TOTAL PROTEIN 5.8 g/dL (6.3-8.3)
[2019-07-11] MEDS ORDERED: HUMALOG (PARKWAY) SUBQ SCH (08:00)
[2019-07-11] MEDS ORDERED: ASPIRIN EC PO SCH (09:00)
[2019-07-11] MEDS ORDERED: EFFIENT PO SCH (09:00)
--- NOTE | 2019-07-11 10:00 | Diag Imaging Result Doc PS360 ---
EXAM: CT ABD/PELVIS W/PO AND IV CON HISTORY: DIVERTICULITIS TECHNIQUE: CT abdomen and pelvis with intravenous contrast COMPARISON: None. FINDINGS: Likely cyst superiorly within the liver. No other hepatic abnormality. No calcified gallstones or adjacent inflammation. Normal spleen, pancreas, adrenal glands, and kidneys. No hydronephrosis. Normal aorta. No bowel obstruction. No inflammation about the cecum or other pericolonic inflammation. No abscess. No definite colonic wall thickening. The urinary bladder is moderately distended and is normal. There are small ovarian cysts. Normal uterus. IMPRESSION: No evidence of diverticulitis This exam was performed using automated exposure control, adjustment of mA or kV according to patient size, and/or use of iterative reconstruction technique. Electronically signed by Isma Campbell 07/11/2019 9:58 AM
[2019-07-11] MEDS: RANEXA PO SCH ×2 (10:16→20:35)
[2019-07-11] MEDS: LOPRESSOR PO SCH ×2 (10:16→20:35)
[2019-07-11] MEDS: SYNTHROID PO SCH ×2 (10:19)
[2019-07-11] MEDS: NS 1,000 ML IV SCH (10:19)
--- NOTE | 2019-07-11 12:40 | PROGRESS NOTE ---
DATE: 07/11/2019 SUBJECTIVE: The patient reports feeling fine. Is still having many episodes of diarrhea, probably up to 20 bowel movements in the last 24 hours. Denies any abdominal pain or nausea. OBJECTIVE: Vital Signs: Temperature 97.5 degrees, heart rate 67, respiratory 14, blood pressure 108/66, O2 saturation 100% on room air. General: This is a 44-year-old female lying in bed, in no acute distress. Cardiovascular: S1, S2 heard. No murmurs, gallops, or rubs. Regular rate and rhythm. Respiratory: Clear bilaterally to auscultation. No work of breathing or using accessory muscles. Abdomen: Soft, nontender to palpation. Bowel sounds present. No organomegaly. Extremities: No clubbing, cyanosis, or edema. Peripheral pulses present in both legs. Neurological: Patient is alert and oriented x3. Moves 4 extremities. LABORATORY DATA: Reviewed. IMAGING: CT of the abdomen and pelvis with oral and IV contrast showed no evidence of diverticulitis. ASSESSMENT AND PLAN: 1. Acute gastroenteritis. The CT of the abdomen was negative. At this point, we will continue with IV fluids. Considering that she has still many episodes of diarrhea, we will keep this patient in the hospital. We will order stool studies including Clostridium difficile, stool culture, and white blood cells in the stool as well. We will continue with Flagyl and Levaquin. 2. History of coronary artery disease with stenting. Patient is doing okay, not having any chest pain. We will continue to monitor. 3. Hypothyroidism. We will continue with Synthroid. 4. Diabetes mellitus type 2. We will continue with her own insulin pump. 5. Disposition. We will continue to monitor this patient closely. We will see what those stool studies show. cc: Esequiel Walker MD [facility]
[2019-07-11] MEDS: LEVAQUIN 500 MG/D5W 500 MG/100 ML IVPB IV SCH (18:04)
[2019-07-11] MEDS: ZOFRAN IV PRN (19:27)
[2019-07-11] MEDS ORDERED: LIPITOR PO SCH (21:00)
[2019-07-11] MEDS ORDERED: FERROUS SULFATE PO SCH (21:00)
[2019-07-12] MEDS: FLAGYL 500 MG/NS 500 MG/100 ML IVPB IV SCH (03:04)
[2019-07-12] MEDS: SYNTHROID PO SCH ×2 (06:04)
[2019-07-12] MEDS: HUMALOG (PARKWAY) SUBQ SCH (06:08)
[2019-07-12 06:39] VITALS: BP 122/56
[2019-07-12] MEDS: NS 1,000 ML IV SCH (06:59)
--- NOTE | 2019-07-13 10:30 | DISCHARGE SUMMARY ---
ADMISSION DATE: 07/10/2019 DISCHARGE DATE: 07/12/2019 ADMISSION DIAGNOSES: 1. Possible diverticulitis or colitis, but admits with abdominal pain, diarrhea, nausea, vomiting. 2. History of coronary artery disease with stent and coronary artery bypass grafting. 3. Angina history. 4. Hypothyroidism. 5. Diabetes mellitus type 1. DISCHARGE DIAGNOSES: 1. Acute gastroenteritis. 2. Coronary artery disease history. 3. Hypothyroidism. 4. Diabetes mellitus type 1. CONSULTATIONS: None. SURGERIES AND PROCEDURES: None. HOSPITAL COURSE: Ms Caroline Hammer is a 44-year-old female with a medical history of diabetes mellitus type 1, who had coronary disease that required CABG and also required a stent this year. She is on prasugrel and apparently she has also had a history of C diff in the past. That was ruled out, but she actually came in with complaints of diarrhea, nausea, vomiting, abdominal pain, and dehydration. She was given IV antibiotics and IV fluids, sent for CT scan which ruled out diverticulitis and so we treated her for acute gastroenteritis. Symptoms have improved and she will be discharged home. DISCHARGE VITAL SIGNS: Temperature 97.3 degrees, heart rate 71, respiratory rate 18, blood pressure 122/56, O2 saturation 100% on room air. DISCHARGE LABORATORY DATA: White blood cells 6000, hemoglobin 12, hematocrit 37, platelet count 257,000. Sodium 140, potassium 3.5, BUN 13, creatinine 0.6, glucose 101, calcium 8.6. Magnesium 1.6. Bilirubin 0.80, AST 13, ALT 12. Stool negative for blood, is also negative for C difficile. Other pathogens ruled out in the stool. The ova and parasite is actually pending. IMAGING: She had abdominal and pelvic CT. No evidence of diverticulitis. DISCHARGE MEDICATIONS: 1. Zofran 4 mg p.o. every 4 hours p.r.n. for nausea. 2. She has 137 mcg of Synthroid and another one that is 25 mcg that she takes daily. 3. Ranexa 500 mg p.o. twice daily. 4. Praluent 150 mcg subcutaneously once a week. 5. Insulin Aspart insulin pump. 6. Lopressor 25 mg p.o. twice daily. 7. Effient 10 mg p.o. daily. 8. Aspirin 81 mg p.o. daily. 9. Lipitor 20 mg p.o. nightly. 10. Iron 325 mg p.o. nightly. DISCHARGE DIET: Full liquid, advance to soft and then you can do regular diabetic diet. DISCHARGE ACTIVITY: As tolerated. DISCHARGE INSTRUCTIONS: If your condition changes, contact your physician and/or return to the emergency department. Changes may include but are not limited to shortness of breath, increased fatigue, excessive bleeding, unexplained weight loss or gain, unmanageable pain, signs or symptoms of infection. PHYSICIAN FOLLOWUP: Higinio Velásquez. DISCHARGE DISPOSITION: Home. Dictated by SAMSON Gomez for Esequiel Walker MD Addendum: Patient seen and examined by myself. Agree with SAMSON note. It reflects my assessment and plan. Patient is being discharged from hospital in stable condition and will be seen by PCP in a week. cc: SAMSON Gomez MD MTD
[2019-07-15] MEDS ORDERED: PATIENT'S OWN MED SUBQ SCH (08:00)
== END 2019-07-12 09:39 | disposition home or self-care (01) ==
LOC: INTOOBSV 15:52 → P.DIRADM 15:52 → SUATTDRO 15:52 → P.MEDSURG 16:15
PROVIDERS: ATTEND Internal Medicine